=== PATIENT | male | born 1955 | race Asian ===

== ENCOUNTER 2018-06-04 21:04 | Emergency (ER) | payer MEDICAID ==
[~2018-06-04] VITALS: Ht 165.1 cm; Wt 62.1 kg
--- NOTE | 2018-06-04 22:25 | NUR ---
PT BBSELF FROM HOME C/C FEVER, DRY COUGH, THROAT PAIN X3 DAYS. -N/V/D. LAST TYLENOL AND ANTITUSSIVE TAKEN AT 1730. FEBRILE. PT ON MONITOR IN BED 4 WITH FAMILY AT BEDSIDE. NAD NOTED. RESP EVEN AND UNLABOROED. WILL CONTINUE TO MONITOR.
--- NOTE | 2018-06-04 22:52 | NUR ---
RADIOLOGY AT BEDSIDE FOR EKG
[2018-06-04] MEDS ORDERED: IBUPROFEN 600 MG TABLET PO ONE (22:55)
[2018-06-04] MEDS: IBUPROFEN 600 MG TABLET PO ONE (23:05)
[2018-06-04] MEDS: IV NS 0.9% 1,000 ML BAG IV ONE (23:05)
--- NOTE | 2018-06-05 02:05 | NUR ---
CALLED MICHELLE RE: RADIOLOGY READ.
[2018-06-05 02:54] VITALS: BP 124/73
== END 2018-06-05 02:54 | disposition home or self-care (01) ==
LOC: ER 21:04
DX: J06.9 Acute upper respiratory infection, unspecified (principal); I70.0 Atherosclerosis of aorta
CPT/HCPCS: 71045-TC; 87400; J7030

== ENCOUNTER 2018-09-01 14:53 | Emergency (ER) ==
[~2018-09-01] VITALS: Ht 162.6 cm; Wt 62.1 kg
[2018-09-01 14:59] VITALS: BP 112/71
== END 2018-09-01 15:11 | disposition home or self-care (01) ==
LOC: ER 14:56
DX: K08.89 Other specified disorders of teeth and supporting structures (principal); F11.90 Opioid use, unspecified, uncomplicated

== ENCOUNTER 2018-09-13 15:20 | Emergency (ER) | payer MEDICAID ==
[~2018-09-13] VITALS: Ht 165.1 cm; Wt 62.1 kg
[2018-09-13] MEDS ORDERED: IV NS 0.9% 1,000 ML BAG IV ONE (16:00)
[2018-09-13] MEDS ORDERED: DICYCLOMINE HCL INJ 20 MG/2 ML AMPUL IM ONE ×2 (16:00→16:10)
--- NOTE | 2018-09-13 16:05 | NUR ---
C/O ABDOMINAL PAIN AND DIARRHEA FOR 2 WEEKS. PATIENT PLACED ON THE MONITOR. A/OX3, NO DISTRESS NOTED. MD AT BEDSIDE FOR EVAL.
[2018-09-13 16:19] LABS: BASOPHILS # (AUTO) 0.1 /CMM (0.0-0.2); BASOPHILS % (AUTO) 0.9 % (0.0-2.0); EOSINOPHILS % (AUTO) 3.8 % (0.0-6.0); HEMATOCRIT 46 % (39-51); HEMOGLOBIN 15.6 g/dL (13.5-17.5); LYMPHOCYTES # (AUTO) 3.2 /CMM (0.8-4.8); LYMPHOCYTES % (AUTO) 29.6 % (20.0-44.0); MEAN CORPUSCULAR HGB CONC 34 g/dl (31.0-36.0); MEAN CORPUSCULAR VOLUME 91 fL (80-96); MONOCYTES % (AUTO) 9.4 % (2.0-12.0); NEUTROPHILS # (AUTO) 6.1 /CMM (1.8-8.9); NEUTROPHILS % (AUTO) 56.3 % (43.0-81.0); PLATELET COUNT (AUTO) 264 /CMM (150-450); RED BLOOD CELL COUNT(AUTO) 5.02 MIL/uL (4.5-6.0); WHITE BLOOD COUNT (AUTO) 10.8 K/uL (4.3-11.0)
[2018-09-13 16:28] LABS: CALCIUM, SERUM 9.1 mg/dL (8.5-10.1); CREATININE 0.9 mg/dL (0.6-1.3); POTASSIUM 3.9 mmol/L (3.5-5.1)
--- NOTE | 2018-09-13 16:51 | NUR ---
PIV removed, rx provided. Patient discharged to home in stable condition. Written and verbal after care instructions given. Patient verbalizes understanding of instruction.
[2018-09-13 16:53] VITALS: BP 127/68
== END 2018-09-13 16:53 | disposition home or self-care (01) ==
LOC: ER 15:25
DX: R19.7 Diarrhea, unspecified (principal); Z98.890 Other specified postprocedural states
CPT/HCPCS: 36415; 80048; 85025; 96360; 96372; 99283; J0500; J7030

== ENCOUNTER 2020-03-13 00:38 | Emergency (ER) | payer MEDICAID ==
[~2020-03-13] VITALS: Ht 170.2 cm; Wt 86.2 kg
[2020-03-13 00:40] VITALS: BP 128/61
--- NOTE | 2020-03-13 01:41 | NUR ---
Patient discharged to home in stable condition. Written and verbal after care instructions given. Patient verbalizes understanding of instruction.
== END 2020-03-13 01:46 | disposition home or self-care (01) ==
LOC: ER 00:40
DX: S00.33XA Contusion of nose, initial encounter (principal); Z98.890 Other specified postprocedural states; Y08.89XA Assault by other specified means, initial encounter; Y93.89 Activity, other specified; Y92.89 Other specified places as the place of occurrence of the external cause; Y99.8 Other external cause status
CPT/HCPCS: 70160-TC